=== PATIENT | female | born 1990 | race Caucasian/White ===

== ENCOUNTER 2018-08-15 21:14 | Observation (INO) | payer OTHER ==
[2018-08-15] MEDS ORDERED: SODIUM CHLORIDE 1,000 ML IV STA (21:35)
[2018-08-15] MEDS ORDERED: PANTOPRAZOLE SODIUM 40 MG in SODIUM CHLORIDE 100 ML IVPB ONE (21:38)
[2018-08-15] MEDS ORDERED: ONDANSETRON 4 MG/2 ML VIAL IVPUSH ONE (21:38)
--- NOTE | 2018-08-15 21:38 | PDOC ---
Rapid Medical Evaluation Time Seen by Provider: 08/15/18 21:33 Medical Evaluation: Allergies Allergy/AdvReac Type Severity Reaction Status Date / Time No Known Allergies Allergy Verified 04/13/18 10:32 08/15/18 21:35 pt c/o: luq pain with nausea and diarrhea x 1 week ago , pt c/o fatigue, pt went to urgent care clinic for eval, ua upreg -, here for w/u, hx gastritis Pt on brief exam: vss, Pt ordered for: labs, urine pt to proceed to the ED Discharge Disposition - Diagnosis Abdominal pain - Referrals - Patient Instructions - Post Discharge Activity
[2018-08-15 21:39] VITALS: BMI 37.4
[2018-08-15 22:01] LABS: BASO % 0.3 % (0-2.0); HEMATOCRIT 39.6 % (32.4-45.2); LYMPH % 10.7 % (8-40); MCH 33.8 pg (25.7-33.7); MCHC 35.4 g/dl (32.0-36.0); MEAN CELL VOLUME 95.6 fl (80-96); MEAN PLT VOLUME 9.8 fl (7.5-11.1); MONO % 5.6 % (3.8-10.2); NEUT % 82.4 % (42.8-82.8); PLATELET COUNT 247 K/MM3 (134-434); RBC 4.14 M/mm3 (3.60-5.2); RDW 13.8 % (11.6-15.6); WHITE BLOOD COUNT 8.9 K/mm3 (4.0-10.0)
[2018-08-15] MEDS ORDERED: ONDANSETRON 4 MG/2 ML VIAL ONE (22:03)
[2018-08-15] MEDS ORDERED: PANTOPRAZOLE SODIUM 40 MG/100 ML BAG IVPB ONE (22:03)
--- NOTE | 2018-08-15 22:20 | PDOC ---
History of Present Illness - General Chief Complaint: Pain Stated Complaint: STOMACH PAIN Time Seen by Provider: 08/15/18 21:33 History Source: Patient Exam Limitations: No Limitations - History of Present Illness Initial Comments: 08/15/18 22:14 Patient is a 28F with history of GERD, cholecystectomy here today complaining of 1 week of diarrhea and LUQ pain. Patient endorses subjective fevers and chills. Denies vomiting, endorses nausea. Denies dysuria. Denies vaginal bleeding/vaginal pain/vaginal discharge. LMP 5 weeks ago, irregular at baseline. Patient was evaluated at [facility], paperwork at bedside describes normal UA, neg upreg, flu neg, zofran given. No sick contacts, took amoxicillin for sinus infection two weeks ago. Past History - Past Medical History Allergies/Adverse Reactions: Allergies Allergy/AdvReac Type Severity Reaction Status Date / Time No Known Allergies Allergy Verified 08/15/18 21:39 Home Medications: Ambulatory Orders Fluconazole [Diflucan] 150 mg PO ONCE #1 tablet 04/13/18 Fluconazole [Diflucan] 150 mg PO ONCE #2 tablet 04/13/18 Fluconazole [Diflucan] 150 mg PO ONCE #2 tablet 04/13/18 Nystatin Ointment [Mycostatin Ointment -] 1 applic TP BID #30 g 04/13/18 Nystatin Ointment [Mycostatin Ointment -] 1 applic TP BID #30 grams 04/13/18 Nystatin Ointment [Mycostatin Ointment -] 1 applic TP BID 7 Days #30 g 04/13/18 Ciprofloxacin [Cipro (Restricted To Id)] 500 mg PO BID #14 tablet 08/16/18 Ciprofloxacin [Cipro (Restricted To Id)] 500 mg PO DAILY #14 tablet 08/16/18 Metoclopramide HCl [Reglan -] 10 mg PO DAILY #7 tablet 08/16/18 Oxycodone HCl/Acetaminophen [Percocet 5-325 mg Tablet -] 1 combo PO Q6H PRN #5 tablet MDD 5 08/16/18 metroNIDAZOLE [Flagyl -] 500 mg PO TID #21 tablet 08/16/18 metroNIDAZOLE [Flagyl -] 500 mg PO TID #21 tablet 08/16/18 COPD: No - Surgical History Cholecystectomy: Yes - Suicide/Smoking/Psychosocial Hx Smoking History: Never smoked Have you smoked in the past 12 months: No Information on smoking cessation initiated: No Hx Alcohol Use: No Drug/Substance Use Hx: No Review of Systems - Review of Systems Comments:: 08/15/18 22:20 GENERAL/CONSTITUTIONAL: +fever +chills. No weakness. HEAD, EYES, EARS, NOSE AND THROAT: No change in vision. No sore throat. CARDIOVASCULAR: No chest pain or shortness of breath RESPIRATORY: No cough, wheezing, or hemoptysis. GASTROINTESTINAL: +nausea, no vomiting, +diarrhea. GENITOURINARY: No dysuria, frequency, or change in urination. MUSCULOSKELETAL: +body aches No neck or back pain. SKIN: No rash NEUROLOGIC: No headache, vertigo, loss of consciousness, or change in strength/ sensation. ENDOCRINE: No increased thirst. No abnormal weight change HEMATOLOGIC/LYMPHATIC: No anemia, easy bleeding, or history of blood clots. ALLERGIC/IMMUNOLOGIC: No hives or skin allergy. *Physical Exam - Vital Signs Last Vital Signs Temp Pulse Resp BP Pulse Ox 98.5 F 66 18 99/68 100 08/15/18 21:36 08/15/18 21:36 08/15/18 21:36 08/15/18 21:36 08/15/18 21:36 - Physical Exam Comments: 08/15/18 22:22 GENERAL: Awake, alert, and fully oriented, tearful, holding still in bed HEAD: No signs of trauma, normocephalic, atraumatic EYES: PERRLA, EOMI, sclera anicteric, conjunctiva clear ENT: Auricles normal inspection, hearing grossly normal, nares patent, oropharynx clear without exudates. Moist mucosa NECK: Normal ROM, supple, no lymphadenopathy, JVD, or masses LUNGS: No distress, speaks full sentences, clear to auscultation bilaterally HEART: Regular rate and rhythm, normal S1 and S2, no murmurs, rubs or gallops, peripheral pulses normal and equal bilaterally. ABDOMEN: Soft, tender in LUQ with guarding, no lower tenderness EXTREMITIES: Normal inspection, Normal range of motion, no edema. No clubbing or cyanosis. NEUROLOGICAL: Cranial nerves II through XII grossly intact. Normal speech, normal gait, no focal sensorimotor deficits SKIN: Warm, Dry, normal turgor, no rashes or lesions noted. Moderate Sedation - Procedure Monitoring Vital Signs: Procedure Monitoring Vital Signs Temperature 98.5 F 08/15/18 21:36 Pulse Rate 66 08/15/18 21:36 Respiratory Rate 18 08/15/18 21:36 Blood Pressure 99/68 08/15/18 21:36 O2 Sat by Pulse Oximetry (%) 100 08/15/18 21:36 ED Treatment Course - LABORATORY CBC & Chemistry Diagram: 08/15/18 21:48 08/15/18 21:48 - ADDITIONAL ORDERS Additional order review: 08/15/18 21:48 RBC 4.14 MCV 95.6 MCHC 35.4 RDW 13.8 MPV 9.8 Neutrophils % 82.4 Lymphocytes % 10.7 Monocytes % 5.6 Eosinophils % 1.0 Basophils % 0.3 - RADIOLOGY Radiology Studies Ordered: Category Date Time Status ABDOMEN & PELVIS CT WITH CONTR [CT] Stat CT Scan 08/15/18 22:05 Ordered - Medications Given in the ED: ED Medications Discontinued Medications Generic Name Dose Route Start Last Admin Trade Name Freq PRN Reason Stop Dose Admin Pantoprazole Sodium 40 mg/ 100 mls @ 200 mls/hr 08/15/18 21:38 08/15/18 22:10 Sodium Chloride IVPB 08/15/18 22:07 200 mls/hr ONCE ONE Administration Ondansetron HCl 4 mg 08/15/18 21:38 08/15/18 22:10 Zofran Injection IVPUSH 08/15/18 21:39 Not Given ONCE ONE Medical Decision Making - Medical Decision Making 08/15/18 22:23 Patient is 28F here today with nausea, LUQ pain, diarrhea. Vitals normal and stable. Tender on exam. DDx is weighted towards viral syndrome, GERD/Gastritis, but also considering pancreatitis and colitis. Will evaluate with abdominal labs , ct. Given protonix by RME, requesting no pain medications at this time. Vomited in ED. 08/16/18 02:47 CBC CMP normal. Preg negative. CT A/P shows no acute issue, but patient's pain has continued, will treat as possible colitis. Given reglan and percocet for nausea and pain control. Patient reassessed, pain improved. Will discharge home with strict return precautions. 08/16/18 03:40 On discharge, patient vomited again. Has received zofran 8mg as outpatient, reglan, will give ativan. *DC/Admit/Observation/Transfer Diagnosis at time of Disposition: Abdominal pain - Discharge Dispostion Disposition: HOME Condition at time of disposition: Stable Decision to Admit order: Yes - Prescriptions - Referrals - Patient Instructions - Post Discharge Activity
[2018-08-15 22:26] LABS: ALBUMIN 3.9 g/dl (3.4-5.0); ALK PHOS 58 U/L (45-117); ANION GAP 7 MMOL/L (8-16); BILIRUBIN,TOTAL 1.2 mg/dL (0.2-1); BLOOD UREA NITROGEN 12 mg/dL (7-18); CALCIUM 8.5 mg/dL (8.5-10.1); CHLORIDE 104 mmol/L (98-107); CO2 28 mmol/L (21-32); CREATININE 0.8 mg/dL (0.55-1.3); GLUCOSE,RANDOM 88 mg/dL (74-106); POTASSIUM 4.1 mmol/L (3.5-5.1); SGOT/AST 32 U/L (15-37); SGPT/ALT 44 U/L (13-61); SODIUM 139 mmol/L (136-145); TOT PROT 7.9 g/dl (6.4-8.2)
[2018-08-15 22:49] LABS: LIPASE 192 U/L (73-393)
--- NOTE | 2018-08-15 22:49 | PDOC ---
Attending Attestation - Resident Resident Name: Layo Green - ED Attending Attestation I have performed the following: I have examined & evaluated the patient, The case was reviewed & discussed with the resident, I agree w/resident's findings & plan - HPI HPI: 08/15/18 22:41 28-year-old female with no severe past medical history other than possible gastritis presents with intractable diarrhea for about one week and worsening abdominal pain. Patient reports multiple episodes per day, up to 8-10 yesterday , of watery diarrhea recently with small amount of blood. Worsening left-sided abdominal pain that is constant and dull with occasional sharp exacerbations, chills but no measured fevers. Nausea but no vomiting, no urinary complaints. No recent travel or diet change, did take course of amoxicillin in July for sinus infection, no sick contacts. Had history of GI distress resulting in an endoscopy and colonoscopy around 2012 , hemorrhoids diagnosed at that time but no inflammatory colonic issues, was diagnosed with gastritis. - Physicial Exam PE: 08/15/18 22:43 vss lying in stretcher, tearful 2/2 abd pain dry mucosa without lesions, no jaundice/pallor s1s2 rrr ,ctab soft/nd. tender with guarding in the Left abdomen, + rebound with referred pain and rebound to the L no cvat - Medical Decision Making 08/15/18 22:44 28-year-old female presents with intractable diarrhea and abdominal pain for one week, left-sided peritoneal findings. suspicious for diverticulitis/colitis , ? cdiff given recent abx. labs, ua, stool cx ctap ivf, pain control reassess 08/16/18 02:08 Labs are within normal limits, no leukocytosis, LFTs and lipase normal, urinalysis pending. CT of the abdomen and pelvis notably normal with right ovarian cyst, but no evidence of colitis or obstruction or acute infectious process. Patient remains tender in the left abdomen, though slightly improved from before. Presentation still remains most consistent with colitis, has not had any pain medicine here. We'll trial Percocet and Reglan, reassess pain level. If symptoms improve, will discharge on antibiotics and pain/nausea regimen. If remains very symptomatic, will observe in hospital for serial abdominal exams and GI evaluation/disposition.
[2018-08-16] MEDS ORDERED: metroNIDAZOLE 500 MG TABLET PO ONE (02:07)
[2018-08-16] MEDS ORDERED: METOCLOPRAMIDE HCL INJECTION 10 MG/2 ML VIAL IVPUSH ONE (02:07)
[2018-08-16] MEDS ORDERED: CIPROFLOXACIN 500 MG TABLET (RESTRICTED TO ID) PO ONE (02:07)
[2018-08-16 02:16] LABS: URINE APPEARANCE CLEAR; URINE BILIRUBIN NEGATIVE (<2.0 mg/dL); URINE COLOR YELLOW; URINE GLUCOSE (UA) NEGATIVE (NEGATIVE); URINE KETONE NEGATIVE (NEGATIVE); URINE LEUK ESTERASE NEGATIVE (NEGATIVE); URINE NITRITE NEGATIVE (NEGATIVE); URINE PROTEIN NEGATIVE (NEGATIVE); URINE UROBILINOGEN 4.0 E.U/dl mg/dL (0.2-1.0)
[2018-08-16] MEDS ORDERED: METOCLOPRAMIDE HCL INJECTION 10 MG/2 ML VIAL ONE ×3 (02:18→09:51)
[2018-08-16] MEDS ORDERED: metroNIDAZOLE 250 MG TABLET ONE (02:19)
[2018-08-16] MEDS ORDERED: LORazepam 2 MG/ML SDV VIAL ONE (03:55)
[2018-08-16] MEDS ORDERED: ONDANSETRON 4 MG/2 ML VIAL IVPUSH PRN (04:10)
[2018-08-16] MEDS ORDERED: LACTATED RINGERS SOLUTION 1,000 ML IV SCH (04:15)
--- NOTE | 2018-08-16 06:00 | PN ---
Teaching Attending Note Name of Resident: Jamin Zhao Entered in error; please see the other H and P
--- NOTE | 2018-08-16 06:15 | HP ---
CHIEF COMPLAINT: Vomiting, diarrhea PCP: None HISTORY OF PRESENT ILLNESS: Seen and examined; she has no PMH and tells me that she takes no chronic Rx medications. She is a 28 y/o HF presenting with several days of intractable nausea and some diarrhea; bilious and no blood in either vomit or stool. Had similar symptoms when she had a 'stomach infection' several years ago. Nothing makes her pain better or worse. States cant take anything PO. No history of DM or cannabis abuse. This is accompanied by nonspecific abdominal pain that isn't made better with anything but is made worse with food. She was on Amoxicillin ~7 days ago for a sinus infection. She is hemodynamically stable and afebrile. CT done in the ER only significant for 3cm ovary cyst. In the ER she was hydrated and started on IV abx and given multiple doses of antiemetics and protonix. She had some relief but vomitted again when going to be discharged so medicine was called for admission Recent Travel: None PAST MEDICAL HISTORY: Denies chronic conditions for which she takes Rx meds PAST SURGICAL HISTORY: Prior cholecystectomy Social History: Denies EtOH, drugs, tobacco Family History: Asked and noncontributory Allergies No Known Allergies Allergy (Verified 08/15/18 21:39) HOME MEDICATIONS: Home Medications Medication Instructions Recorded NK [No Known Home Medication] 08/16/18 REVIEW OF SYSTEMS 10 sys ROS done and negative aside from HPI PHYSICAL EXAMINATION Vital Signs - 24 hr 08/15/18 08/16/18 21:36 03:26 Temperature 98.5 F 98.4 F Pulse Rate 66 Pulse Rate [ 86 Left Apical] Respiratory 18 18 Rate Blood Pressure 99/68 Blood Pressure 105/61 [Right Arm] O2 Sat by Pulse 100 100 Oximetry (%) GENERAL: Awake, alert, and fully oriented, in no acute distress. HEAD: Normal with no signs of trauma. EYES: Pupils equal, round and reactive to light, extraocular movements intact EARS, NOSE, THROAT: Ears normal, nares patent, oropharynx clear without exudates. Moist mucous membranes. NECK: Normal range of motion, supple without lymphadenopathy, JVD, or masses. LUNGS: Breath sounds equal, clear to auscultation bilaterally. HEART: Regular rate and rhythm, normal S1 and S2 without murmur, rub or gallop. ABDOMEN: Soft, mild general tender, not distended, normoactive bowel sounds MUSCULOSKELETAL: Normal range of motion at all joints. No bony deformities or tenderness. No CVA tenderness. PSYCHIATRIC: Cooperative. Good eye contact. Appropriate mood and affect. SKIN: Warm, dry, normal turgor, no rashes or lesions noted, normal capillary refill. Laboratory Results - last 24 hr 08/15/18 08/15/18 08/15/18 21:48 21:48 21:48 WBC 8.9 RBC 4.14 Hgb 14.0 Hct 39.6 MCV 95.6 MCH 33.8 H MCHC 35.4 RDW 13.8 Plt Count 247 MPV 9.8 Absolute Neuts (auto) 7.3 Neutrophils % 82.4 Lymphocytes % 10.7 Monocytes % 5.6 Eosinophils % 1.0 Basophils % 0.3 Nucleated RBC % 0 Sodium 139 Potassium 4.1 Chloride 104 Carbon Dioxide 28 Anion Gap 7 L BUN 12 Creatinine 0.8 Creat Clearance w eGFR > 60 Random Glucose 88 Calcium 8.5 Magnesium 2.1 Total Bilirubin 1.2 H AST 32 ALT 44 Alkaline Phosphatase 58 Total Protein 7.9 Albumin 3.9 Lipase 192 Serum , Qual Urine Color Urine Appearance Urine pH Ur Specific [place] Urine Protein Urine Glucose (UA) Urine Ketones Urine Blood Urine Nitrite Urine Bilirubin Urine Urobilinogen Ur Leukocyte Esterase 08/15/18 08/15/18 08/16/18 22:17 22:30 01:40 WBC RBC Hgb Hct MCV MCH MCHC RDW Plt Count MPV Absolute Neuts (auto) Neutrophils % Lymphocytes % Monocytes % Eosinophils % Basophils % Nucleated RBC % Sodium Potassium Chloride Carbon Dioxide Anion Gap BUN Creatinine Creat Clearance w eGFR Random Glucose Calcium Magnesium Total Bilirubin AST ALT Alkaline Phosphatase Total Protein Albumin Lipase Cancelled Serum , Qual Negative Urine Color Yellow Urine Appearance Clear Urine pH 7.0 D Ur Specific [place] 1.023 Urine Protein Negative Urine Glucose (UA) Negative Urine Ketones Negative Urine Blood Negative Urine Nitrite Negative Urine Bilirubin Negative Urine Urobilinogen 4.0 e.u/dl H Ur Leukocyte Esterase Negative ASSESSMENT/PLAN: Patient presents to the medicine service for intractable vomitting and diarrhea ; preliminary imaging report is negative for acute intra abdominal findings to explain. Did have some relief in ER but sx returned. Was recently on abx for sinus infection. 1) Intractable vomitting -Ddx suspicious for viral gastroenteritis; other issues often seen like DM gastroparesis less likely given her lack of DM but will check A1c. Denies MMJ use but will check a Utox. -ATC metoclopromide (convert to PO when taking oral), PRN zofran. Liquid diet may advance as tolerated -Followup final CT report -Followup lites, Is and Os, etc. 2) Acute Diarrheal illness -Monitor for s/s dehydration; as recent abx will check a Cdif. -Check lactoferrin -If negative Cdif can go ahead and given PRN loperimide. 3) Ovarian Cyst -3cm on R-side on prelim CT reading. These can cause abdominal pain. Recommend PRN APAP and followup with cable spooler; can get US outpatient FENA -LR @100 -PRN replete -Liquid; advance as tolerated Full Code
[2018-08-16 06:39] LABS: MAGNESIUM 1.6 mg/dL (1.8-2.4)
[2018-08-16 07:10] VITALS: TEMP 98.5
[2018-08-16] MEDS ORDERED: MAGNESIUM SULF 50% (8.12 MEQ/2 ML-1 GM VIAL) IVPB ONE (07:42)
[2018-08-16] MEDS ORDERED: METOCLOPRAMIDE HCL INJECTION 10 MG/2 ML VIAL IVPUSH SCH (09:00)
--- NOTE | 2018-08-16 09:05 | DS ---
Physical Examination Vital Signs: Vital Signs Temperature 36.9 C 08/16/18 07:09 Pulse Rate 66 08/16/18 07:09 Respiratory Rate 16 08/16/18 07:09 Blood Pressure 99/54 L 08/16/18 07:09 O2 Sat by Pulse Oximetry (%) 97 08/16/18 07:09 Constitutional: Yes: Well Nourished, No Distress, Calm Cardiovascular: Yes: Regular Rate and Rhythm. No: Gallop, Murmur, Rub Respiratory: Yes: Regular, CTA Bilaterally. No: Rales, Rhonchi, Wheezes Gastrointestinal: Yes: Normal Bowel Sounds, Soft. No: Distention, Tenderness Extremities: Yes: WNL Edema: No Labs: CBC, BMP 08/15/18 21:48 08/15/18 21:48 Discharge Summary Reason For Visit: INTRACTABLE VOMITING ABDOMINAL PAIN Current Active Problems Abdominal pain (Acute) Hospital Course: Ms Luis Flores is a very pleasant 28 year old female who came in with gastroenteritis. She was seen in the ED and hydrated with IVF. She was given anti-emetics. She was found to have hypomagnesemia and this was replaced. She improved and was able to tolerate po. She is safe for discharge home. Condition: Stable - Instructions Diet, Activity, Other Instructions: Please return immediately if you have any new, worsening or concerning symptoms , especially increasing pain, repeated vomiting and fever. Please follow up with your primary care doctor this week. A referral has been given you as well for a GI specialist. Referrals: Amauri Kline MD [Staff Physician] - Disposition: HOME - Home Medications Comprehensive Discharge Medication List: Ambulatory Orders NK [No Known Home Medication] 08/16/18
[2018-08-16] MEDS ORDERED: MAGNESIUM 1GM/D5W - 2 GM/200 ML IVPB IVPB ONE (09:10)
[2018-08-16] MEDS ORDERED: PANTOPRAZOLE SODIUM 40 MG VIAL IVPUSH SCH (10:00)
[2018-08-16] MEDS ORDERED: PANTOPRAZOLE 40 MG TABLET (FP) PO SCH (10:00)
[2018-08-16 11:17] VITALS: BP 109/56; PULSE 65
--- NOTE | 2018-08-16 11:53 | EKG ---
Test Reason : Blood Pressure : / mmHG Vent. Rate : 069 BPM Atrial Rate : 069 BPM P-R Int : 146 ms QRS Dur : 092 ms QT Int : 418 ms P-R-T Axes : 053 -36 027 degrees QTc Int : 447 ms NORMAL SINUS RHYTHM LEFT AXIS DEVIATION ABNORMAL ECG NO PREVIOUS ECGS AVAILABLE Confirmed by BECCA BARBOSA, SATNAM ([id number]) on 08/16/2018 11:53:27 AM Referred By: Confirmed By:SATNAM HUDSON MD
== END 2018-08-16 11:15 | disposition home or self-care (01) ==
LOC: JER 21:14 → JERBED 08-16 03:43
PROVIDERS: ADMIT Internal Medicine; ATTEND Internal Medicine
PROC: 3E033GC Introduction of Other Therapeutic Substance into Peripheral Vein, Percutaneous Approach (ICD-10-PCS; principal; 2018-08-16)
PROC: 3E0337Z Introduction of Electrolytic and Water Balance Substance into Peripheral Vein, Percutaneous Approach (ICD-10-PCS; 2018-08-16)
DX: R10.12 Left upper quadrant pain (principal); R19.7 Diarrhea, unspecified; N83.201 Unspecified ovarian cyst, right side; R11.10 Vomiting, unspecified
CPT/HCPCS: 36415; 71046-TC-FY; 74177-TC; 80053; 81003; 82607; 83036; 83690; 83735; 84703; 85025; 85651; 93005; 93010; 96365; 96375; 96376; 99285-25; G0378; J7030